=== PATIENT | female | born 1980 | race Caucasian/White ===

== ENCOUNTER 2017-03-25 06:09 | Day surgery (SDC) | payer OTHER ==
[2017-03-24 11:52] LABS: RED BLOOD CELL COUNT(AUTO) 4.69 MIL/uL (4.20-5.40)
[2017-03-24 11:53] LABS: EOSINOPHILS % (AUTO) 1.4 % (0.0-4.0); HEMATOCRIT 44.6 % (36-48); HEMOGLOBIN 15.2 g/dL (12.0-16.0); LYMPHOCYTES % (AUTO) 16.7 % (20.5-51.1); MEAN CORPUSCULAR HEMOGLOBIN 32 pg (27-31); MEAN CORPUSCULAR HGB CONC 34 g/dL (33-37); MEAN CORPUSCULAR VOLUME 95 fL (80-94); MONOCYTES % (AUTO) 5.1 % (1.7-9.3); NEUTROPHILS % (AUTO) 76.3 % (42.2-75.2); PLATELET COUNT (AUTO) 244 K/uL (140-450); RED CELL DISTRIBUTION WIDTH 12.6 % (11.6-13.7)
[2017-03-24 11:54] LABS: BASOPHILS # (AUTO) 0.5 K/uL (0.00-0.22); BASOPHILS % (AUTO) 0.5 % (0.0-2.0); EOSINOPHILS # (AUTO) 1.4 K/uL (0-0.4); LYMPHOCYTES # (AUTO) 16.7 K/uL (2.5-16.5); MONOCYTES # (AUTO) 5.1 K/uL (0.8-1.0); NEUTROPHILS # (AUTO) 5.3 K/uL (1.8-7.7)
[2017-03-24 12:18] LABS: ALBUMIN 4.5 g/dL (3.4-5.0); ANION GAP 11.8 (8-16); CARBON DIOXIDE 28.1 mmol/L (21-32); CREATININE 0.8 mg/dL (0.6-1.3); POTASSIUM 3.9 mmol/L (3.5-5.1); TOTAL BILIRUBIN 0.6 mg/dL (0.0-1.0)
[~2017-03-25] VITALS: Ht 152.4 cm; Wt 59.0 kg
[2017-03-25] MEDS ORDERED: BUPIVACAINE-MPF 0.5% 30 ML VIAL INJ ONE (07:16)
[2017-03-25] MEDS ORDERED: MORPHINE SULFATE 4 MG/ML SYR IM/IVP PRN (07:30)
[2017-03-25] MEDS ORDERED: ONDANSETRON 4 MG/2 ML VIAL IVP PRN ×2 (07:30→07:55)
[2017-03-25] MEDS ORDERED: ACETAMINOPHEN/CODEINE 300/30MG 1 TAB PO PRN (07:30)
[2017-03-25] MEDS ORDERED: IBUPROFEN 800 MG TAB PO PRN (07:30)
[2017-03-25] MEDS ORDERED: fentaNYL 0.05 MG/ML VIAL ONE (07:46)
[2017-03-25] MEDS ORDERED: HYDROmorphone PFS 2 MG/ML SYR ONE (07:46)
[2017-03-25] MEDS ORDERED: HYDROmorphone 1 MG/ML AMP IVP PRN (07:55)
== END 2017-03-25 19:30 | disposition home or self-care (01) ==
LOC: MDS 06:09 → MMU 06:10 → MFCC 14:20 → MDS 19:30
PROVIDERS: ATTEND Obstetrics & Gynecology
DX: R10.2 Pelvic and perineal pain (principal); Z90.49 Acquired absence of other specified parts of digestive tract; Z98.890 Other specified postprocedural states
CPT/HCPCS: 36415; 80053; 81025; 85025; 86886; 86900; 86901; 87081; J0690; J1170; J3010; J3490; J7060; J7120